=== PATIENT | male | born 1985 | race African-American/Black ===

== ENCOUNTER 2024-02-11 04:20 | Emergency (ER) | payer MEDICAID ==
[~2024-02-11] VITALS: Ht 172.7 cm; Wt 81.6 kg
[2024-02-11 04:28] VITALS: BP 115/68; PULSE 83; RESP 16; TEMP 98.6; O2SAT 99
[2024-02-11] MEDS ORDERED: CEPH-588 PO (05:13)
[2024-02-11] MEDS ORDERED: ACET500T99 PO (05:14)
== END 2024-02-11 05:17 | disposition home or self-care (01) ==
LOC: MED 04:20
DX: L03.113 Cellulitis of right upper limb (principal); Z79.899 Other long term (current) drug therapy
CPT/HCPCS: 99283